=== PATIENT | female | born 1995 | race Caucasian/White ===

== ENCOUNTER 2017-11-09 15:15 | Emergency (ER) | payer OTHER ==
--- NOTE | 2017-11-09 15:25 | EDM.PDOC ---
ED HPI GENERAL MEDICAL PROBLEM - General Chief Complaint: Respiratory Problem Stated Complaint: SOB Time Seen by Provider: 11/09/17 15:19 Source of Information: Reports: Patient History Limitations: Reports: No Limitations - History of Present Illness INITIAL COMMENTS - FREE TEXT/NARRATIVE: HISTORY AND PHYSICAL: History of present illness: Patient is a 22-year-old female who presents to the emergency room with complaints of right-sided rib pain. She states she fell on 10/28/2017 onto the corner table. Since that time she has had increased pain with deep breathing, coughing, engaging of the muscles. While at work today she felt like she was unable to perform her job duties and decided to be evaluated the emergency room. Currently rates her pain an 8 out of 10. She denies hitting her head or any loss of consciousness during the initial injury on 10/28/17. Review of systems: As per history of present illness and below otherwise all systems reviewed and negative. Past medical history: As per history of present illness and as reviewed below otherwise noncontributory. Surgical history: As per history of present illness and as reviewed below otherwise noncontributory. Social history: No reported history of drug or alcohol abuse. Family history: As per history of present illness and as reviewed below otherwise noncontributory. Physical exam: General: Well-developed and well-nourished 22-year-old female. Alert and oriented. Nontoxic appearing. HEENT: Atraumatic, normocephalic, pupils reactive, negative for conjunctival pallor or scleral icterus, mucous membranes moist, throat clear, neck supple, nontender, trachea midline. Lungs: Clear to auscultation, breath sounds equal bilaterally, tenderness to the right mid axillary chest wall. Heart: S1S2, regular rate and rhythm Abdomen: Soft, nondistended, nontender. Negative for masses or hepatosplenomegaly. Negative for costovertebral tenderness. Pelvis: Stable nontender. Genitourinary: Deferred. Rectal: Deferred. Skin: Intact, warm, dry. No overt lesions or rashes. Extremities: Atraumatic, moves all extremities herself without difficulty or deficits. Neurovascular unremarkable. Neuro: Awake, alert, oriented. Cranial nerves II through XII unremarkable. Cerebellum unremarkable. Motor and sensory unremarkable throughout. Exam nonfocal. She states she had her last menstrual period 10/25/17 and refuses having a test done prior to receiving the chest x-ray as she is adamant that she has "not ". Patient will receive a injection of Toradol IM. Chest x-ray is negative. We did discuss supportive care at home with gentle heat and taking the prescribed anti-inflammatory. Tramadol may be taken at nighttime, dispense 12, no refill. She voices understanding and is agreeable to plan of care. She will follow up with her primary caregiver in the next couple days for further evaluation if it does not improve. She denies any questions at this time. Diagnostics: Chest x-ray Therapeutics: Toradol Impression: Contusion Plan: 1. Please take the anti-inflammatory as prescribed. Do not take any additional NSAIDs such as ibuprofen or Aleve while taking this medication. Gentle heat to the area may be beneficial. A small amount of tramadol has been given 2 for nighttime use. Do not take this medication when driving or needing to be functioning at work as it may cause drowsiness. 2. Please do not avoid taking in deep breaths or coughing as this can cause further problems. Performs splinting as we discussed/demonstrated. 3. Follow-up with your primary caregiver in the next 1-2 days. Return to the ED as needed and as discussed. Definitive disposition and diagnosis as appropriate pending reevaluation and review of above. Duration: Week(s): Chest Pain Score (Numeric/FACES): 8 - Related Data Allergies Allergy/AdvReac Type Severity Reaction Status Date / Time Sulfa (Sulfonamide Allergy Swelling Verified 08/25/16 15:48 Antibiotics) Home Meds: Home Meds Levonorgestrel [Meenu] 1 dose IUTERINE DAILY 08/25/16 [History] Past Medical History - Infectious Disease History Infectious Disease History: Reports: Chicken Pox - Past Surgical History HEENT Surgical History: Reports: Tonsillectomy Social & Family History - Family History Family Medical History: Noncontributory - Tobacco Use Smoking Status *Q: Never Smoker - Caffeine Use Caffeine Use: Reports: Soda - Recreational Drug Use Recreational Drug Use: No ED ROS GENERAL - Review of Systems Review Of Systems: ROS reveals no pertinent complaints other than HPI. ED EXAM, GENERAL - Physical Exam Exam: See Below (See dictation) Course - Vital Signs Last Recorded V/S: Last Vital Signs Temp 97.1 F 11/09/17 15:21 Pulse 112 H 11/09/17 15:21 Resp 18 11/09/17 15:21 BP Pulse Ox 97 11/09/17 15:21 - Orders/Labs/Meds Orders: Active Orders 24 hr Category Date Time Status Chest 2V [CR] Stat Exams 11/09/17 15:26 Taken Meds: Medications Discontinued Medications Generic Name Dose Route Start Last Admin Trade Name Freq PRN Reason Stop Dose Admin Ketorolac Tromethamine 60 mg 11/09/17 15:30 11/09/17 15:55 Toradol IM 11/09/17 15:31 60 mg ONETIME ONE Administration Departure - Departure Time of Disposition: 17:07 Disposition: Home, Self-Care 01 Clinical Impression: Contusion Qualifiers: Encounter type: initial encounter Contusion area: thoracic wall Contusion of thoracic wall detail: front wall of thorax Laterality: right Qualified Code(s): S20.211A - Contusion of right front wall of thorax, initial encounter - Discharge Information Referrals: PCP,None [Primary Care Provider] - Forms: ED Department Discharge Additional Instructions: My general discharge The following information is given to patients seen in the emergency department who are being discharged to home. This information is to outline your options for follow-up care. We provide all patients seen in our emergency department with a follow-up referral. The need for follow-up, as well as the timing and circumstances, are variable depending upon the specifics of your emergency department visit. If you don't have a primary care physician on staff, we will provide you with a referral. We always advise you to contact your personal physician following an emergency department visit to inform them of the circumstance of the visit and for follow-up with them and/or the need for any referrals to a consulting specialist. The emergency department will also refer you to a specialist when appropriate. This referral assures that you have the opportunity for follow-up care with a specialist. All of these measure are taken in an effort to provide you with optimal care, which includes your follow-up. Under all circumstances we always encourage you to contact your private physician who remains a resource for coordinating your care. When calling for follow-up care, please make the office aware that this follow-up is from your recent emergency room visit. If for any reason you are refused follow-up, please contact the [facility] Emergency Department at and asked to speak to the emergency department charge nurse. [facility] [address] [place] [id number] 1. Please take the anti-inflammatory as prescribed. Do not take any additional NSAIDs such as ibuprofen or Aleve while taking this medication. Gentle heat to the area may be beneficial. A small amount of tramadol has been given 2 for nighttime use. Do not take this medication when driving or needing to be functioning at work as it may cause drowsiness. 2. Please do not avoid taking in deep breaths or coughing as this can cause further problems. Performs splinting as we discussed/demonstrated. 3. Follow-up with your primary caregiver in the next 1-2 days. Return to the ED as needed and as discussed. - My Orders Last 24 Hours: My Active Orders 11/09/17 15:26 Chest 2V [CR] Stat - Assessment/Plan Last 24 Hours: My Active Orders 11/09/17 15:26 Chest 2V [CR] Stat
[2017-11-09] MEDS ORDERED: Ketorolac 60 MG/2 ML SDV IM ONE (15:30)
[2017-11-09 17:29] VITALS: BP 107/66
--- NOTE | 2017-11-09 17:34 | CR ---
EXAM DATE: 11/09/17 PATIENT'S AGE: 22 Patient: ROSA CANO Facility: [place], [place] Site . Site : 1995 Study: XRay Chest [id number]/16/2018 4:20:10 PM Ordering Physician: Doctor Patterson Final Report: INDICATION: Recent fall. Right-sided chest pain. COMPARISON: none TECHNIQUE: Two view chest. FINDINGS: The lungs are clear. There is no evidence pneumothorax. Visualized ribs appear intact. The heart, mediastinum and pulmonary vessels are of normal size. There is no evidence of pleural fluid. IMPRESSION: Negative chest. Dictated by Ganesh Haas MD @ Nov 09 2017 4:23PM (Electronic Signature) Report Signed by Proxy. VARUN
== END 2017-11-09 17:25 | disposition home or self-care (01) ==
LOC: MW.ED 15:15
DX: S20.211A Contusion of right front wall of thorax, initial encounter (principal); Z88.2 Allergy status to sulfonamides; Z79.899 Other long term (current) drug therapy; W19.XXXA Unspecified fall, initial encounter
CPT/HCPCS: 71046; 96372; 99283; J1885; 99284

== ENCOUNTER 2019-01-14 13:33 | Emergency (ER) | payer BC ==
[2019-01-14] MEDS ORDERED: Sodium Chloride 0.9% 10 ML Syringe FLUSH PRN (14:05)
[2019-01-14] MEDS ORDERED: Sodium Chloride 0.9% 1,000 ML IV ONE (14:05)
[2019-01-14] MEDS ORDERED: Sodium Chloride 0.9% 2.5 ML Syringe FLUSH PRN (14:05)
--- NOTE | 2019-01-14 14:05 | EDM.PDOC ---
ED HPI GENERAL MEDICAL PROBLEM - General Chief Complaint: Gastrointestinal Problem Stated Complaint: SICK Time Seen by Provider: 01/14/19 14:05 Source of Information: Reports: Patient History Limitations: Reports: No Limitations - History of Present Illness INITIAL COMMENTS - FREE TEXT/NARRATIVE: HISTORY AND PHYSICAL: History of present illness: Patient is a 23-year-old female here with multiple complaints. She states for the past couple of days she has not been feeling well. She states she is dizzy, nauseous, tired, shaky and has been in bed for the past couple of days. She reports she has had a cough recently. She states when she moves too quickly she feels like the room is spinning. She denies fevers, chills, vomiting, abdominal pain, diarrhea, dysuria, hematuria, chest pain, SOB, head injury, headache. Review of systems: As per history of present illness and below otherwise all systems reviewed and negative. Past medical history: As per history of present illness and as reviewed below otherwise noncontributory. Surgical history: As per history of present illness and as reviewed below otherwise noncontributory. Social history: No reported history of drug or alcohol abuse. Family history: As per history of present illness and as reviewed below otherwise noncontributory. Physical exam: General: Patient sitting comfortably in no acute distress and nontoxic appearing HEENT: Atraumatic, normocephalic, pupils reactive, negative for conjunctival pallor or scleral icterus, mucous membranes moist, throat clear, neck supple, nontender, trachea midline. No meningeal signs. Lungs: Clear to auscultation, breath sounds equal bilaterally, chest nontender. Heart: S1S2, regular, negative for clicks, rubs, or overt murmur. Abdomen: Soft, nondistended, nontender. Negative for masses or hepatosplenomegaly. Negative for costovertebral tenderness. No rigidity, rebound , guarding. Pelvis: Stable nontender. Genitourinary: Deferred. Rectal: Deferred. Extremities: Atraumatic, negative for cords or calf pain. Neurovascular unremarkable. Neuro: Awake, alert, oriented. Cranial nerves II through XII unremarkable. Cerebellum unremarkable. Motor and sensory unremarkable throughout. Exam nonfocal. Notes: Patient unable to give urine sample and requesting to go home. Diagnostics: CBC, CMP, UA, urine hcg, EKG, CXR Therapeutics: 1L Normal Saline IV Prescriptions: Meclizine Impression: Vertigo Plan: 1. Take medication as instructed 2. Follow up with primary care provider 3. Return to ED as needed as discussed Definitive disposition and diagnosis as appropriate pending reevaluation and review of above. - Related Data Allergies Allergy/AdvReac Type Severity Reaction Status Date / Time Sulfa (Sulfonamide Allergy Anaphylactic Verified 05/23/18 23:12 Antibiotics) Shock Home Meds: Home Meds Meclizine [Antivert] 25 mg PO TID PRN #15 tab 01/14/19 [Rx] Past Medical History - Past Health History Medical/Surgical History: Denies Medical/Surgical History - Infectious Disease History Infectious Disease History: Reports: Chicken Pox - Past Surgical History HEENT Surgical History: Reports: Tonsillectomy Social & Family History - Family History Family Medical History: Noncontributory - Caffeine Use Caffeine Use: Reports: Soda ED ROS GENERAL - Review of Systems Review Of Systems: ROS reveals no pertinent complaints other than HPI. ED EXAM, GI/ABD - Physical Exam Exam: See Below (see dictation) Course - Vital Signs Last Recorded V/S: Last Vital Signs Temp 96.9 F 01/14/19 14:02 Pulse 104 H 01/14/19 14:02 Resp 18 01/14/19 14:02 BP 152/80 H 01/14/19 14:08 Pulse Ox 97 01/14/19 14:02 - Orders/Labs/Meds Orders: Active Orders 24 hr Category Date Time Status EKG Documentation Completion [RC] STAT Care 01/14/19 14:06 Active Chest 1V Frontal [CR] Stat Exams 01/14/19 14:33 Ordered HCG QUALITATIVE,URINE [URCHEM] Stat Lab 01/14/19 13:56 Ordered UA RFX ROWENA AND CULT IF INDIC [URIN] Stat Lab 01/14/19 13:56 Ordered Sodium Chloride 0.9% [Saline Flush] Med 01/14/19 14:05 Active 10 ml FLUSH ASDIRECTED PRN Sodium Chloride 0.9% [Saline Flush] Med 01/14/19 14:05 Active 2.5 ml FLUSH ASDIRECTED PRN Saline Lock Insert [OM.PC] Stat Oth 01/14/19 14:05 Ordered Medication Orders Sodium Chloride (Saline Flush) 10 ml FLUSH ASDIRECTED PRN PRN Reason: Keep Vein Open Sodium Chloride (Saline Flush) 2.5 ml FLUSH ASDIRECTED PRN PRN Reason: Keep Vein Open Labs: Laboratory Tests 01/14/19 01/14/19 Range/Units 14:25 14:25 WBC 8.35 (4.0-11.0) K/uL RBC 4.66 (4.30-5.90) M/uL Hgb 15.0 (12.0-16.0) g/dL Hct 44.5 (36.0-46.0) % MCV 95.5 (80.0-98.0) fL MCH 32.2 H (27.0-32.0) pg MCHC 33.7 (31.0-37.0) g/dL RDW Std Deviation 43.7 (28.0-62.0) fl RDW Coeff of Deonte 13 (11.0-15.0) % Plt Count 306 (150-400) K/uL MPV 10.50 (7.40-12.00) fL Neut % (Auto) 62.7 (48.0-80.0) % Lymph % (Auto) 27.5 (16.0-40.0) % Gordon % (Auto) 8.1 (0.0-15.0) % Eos % (Auto) 1.2 (0.0-7.0) % Baso % (Auto) 0.5 (0.0-1.5) % Neut # (Auto) 5.2 (1.4-5.7) K/uL Lymph # (Auto) 2.3 (0.6-2.4) K/uL Gordon # (Auto) 0.7 (0.0-0.8) K/uL Eos # (Auto) 0.1 (0.0-0.7) K/uL Baso # (Auto) 0.0 (0.0-0.1) K/uL Nucleated RBC % 0.0 /100WBC Nucleated RBCs # 0 K/uL Sodium 143 (136-145) mmol/L Potassium 3.9 (3.5-5.1) mmol/L Chloride 106 (98-107) mmol/L Carbon Dioxide 25.7 (21.0-32.0) mmol/L BUN 8 (7.0-18.0) mg/dL Creatinine 0.9 (0.6-1.0) mg/dL Est Cr Clr Drug Dosing 88.23 mL/min Estimated GFR (MDRD) > 60.0 ml/min Glucose 80 (74-106) mg/dL Calcium 9.1 (8.5-10.1) mg/dL Total Bilirubin 0.4 (0.2-1.0) mg/dL AST 9 L (15-37) IU/L ALT 24 (14-63) IU/L Alkaline Phosphatase 80 (46-116) U/L Total Protein 7.3 (6.4-8.2) g/dL Albumin 4.1 (3.4-5.0) g/dL Globulin 3.2 (2.6-4.0) g/dL Albumin/Globulin Ratio 1.3 (0.9-1.6) TSH 3rd Generation 1.25 (0.36-3.74) uIU/mL Meds: Medications Generic Name Dose Route Start Last Admin Trade Name Freq PRN Reason Stop Dose Admin Sodium Chloride 10 ml 01/14/19 14:05 Saline Flush FLUSH ASDIRECTED PRN Keep Vein Open Sodium Chloride 2.5 ml 01/14/19 14:05 Saline Flush FLUSH ASDIRECTED PRN Keep Vein Open Discontinued Medications Generic Name Dose Route Start Last Admin Trade Name Freq PRN Reason Stop Dose Admin Sodium Chloride 1,000 mls @ 999 mls/hr 01/14/19 14:05 01/14/19 14:53 Normal Saline IV 01/14/19 15:05 999 mls/hr STAT ONE Administration Departure - Departure Time of Disposition: 15:46 Disposition: Home, Self-Care 01 Condition: Good Clinical Impression: Vertigo - Discharge Information Prescriptions: Meclizine [Antivert] 25 mg PO TID PRN #15 tab PRN Reason: Dizziness Referrals: PCP,Unknown [Primary Care Provider] - Forms: ED Department Discharge Additional Instructions: The following information is given to patients seen in the emergency department who are being discharged to home. This information is to outline your options for follow-up care. We provide all patients seen in our emergency department with a follow-up referral. The need for follow-up, as well as the timing and circumstances, are variable depending upon the specifics of your emergency department visit. If you don't have a primary care physician on staff, we will provide you with a referral. We always advise you to contact your personal physician following an emergency department visit to inform them of the circumstance of the visit and for follow-up with them and/or the need for any referrals to a consulting specialist. The emergency department will also refer you to a specialist when appropriate. This referral assures that you have the opportunity for follow-up care with a specialist. All of these measure are taken in an effort to provide you with optimal care, which includes your follow-up. Under all circumstances we always encourage you to contact your private physician who remains a resource for coordinating your care. When calling for follow-up care, please make the office aware that this follow-up is from your recent emergency room visit. If for any reason you are refused follow-up, please contact the [facility] Emergency Department at and asked to speak to the emergency department charge nurse. [facility] [address] [place] [id number] [place] [address] 1. Take medication as instructed 2. Follow up with primary care provider 3. Return to ED as needed as discussed - My Orders Last 24 Hours: My Active Orders 01/14/19 13:56 HCG QUALITATIVE,URINE [URCHEM] Stat UA RFX ROWENA AND CULT IF INDIC [URIN] Stat 01/14/19 14:05 Sodium Chloride 0.9% [Saline Flush] 10 ml FLUSH ASDIRECTED PRN Sodium Chloride 0.9% [Saline Flush] 2.5 ml FLUSH ASDIRECTED PRN Saline Lock Insert [OM.PC] Stat 01/14/19 14:06 EKG Documentation Completion [RC] STAT 01/14/19 14:33 Chest 1V Frontal [CR] Stat - Assessment/Plan Last 24 Hours: My Active Orders 01/14/19 13:56 HCG QUALITATIVE,URINE [URCHEM] Stat UA RFX ROWENA AND CULT IF INDIC [URIN] Stat 01/14/19 14:05 Sodium Chloride 0.9% [Saline Flush] 10 ml FLUSH ASDIRECTED PRN Sodium Chloride 0.9% [Saline Flush] 2.5 ml FLUSH ASDIRECTED PRN Saline Lock Insert [OM.PC] Stat 01/14/19 14:06 EKG Documentation Completion [RC] STAT 01/14/19 14:33 Chest 1V Frontal [CR] Stat
[2019-01-14 15:01] LABS: CHLORIDE,CL 106 mmol/L (98-107); SODIUM,NA 143 mmol/L (136-145)
--- NOTE | 2019-01-14 16:22 | CR ---
INDICATION: Chest pain. Shortness of breath. TECHNIQUE: Frontal radiograph of the chest portable upright. COMPARISON: None FINDINGS: Cardiovascular and mediastinum: Heart size is normal. Pulmonary vasculature is normal. Mediastinum is within normal limits. Lungs and pleural spaces: Lungs are clear. No pleural effusion. No pneumothorax. Bones and soft tissues: No acute findings. IMPRESSION: No acute pulmonary process. Dictated by Juan Manuel Harper MD @ 01/14/2019 4:20:21 PM Dictated by: Juan Manuel Harper MD @ 01/14/2019 16:20:25 (Electronically Signed)
[2019-01-14 18:41] VITALS: BP 147/85
== END 2019-01-14 16:35 | disposition home or self-care (01) ==
LOC: MW.ED 13:33
DX: R42 Dizziness and giddiness (principal); Z88.2 Allergy status to sulfonamides
CPT/HCPCS: 36415; 71045; 80053; 84443; 85025; 87804; 93005; 96360; 99284; J7040